=== PATIENT | male | born 1975 | race Hispanic/Latino ===

== ENCOUNTER 2018-03-22 17:54 | Emergency (ER) | payer SELFPAY ==
--- NOTE | 2018-03-22 18:49 | ER ---
Nurse's Notes [facility] Name: Severino De La Garza Age: 42 yrs Sex: Male : 1975 Arrival Date: 03/22/2018 Time: 18:00 Bed 19 Private MD: None, None Diagnosis: Cutaneous abscess of left upper limb Presentation: 03/22 18:05 Presenting complaint: Patient states: Abscess to left forearm for 6 days. Transition of care: patient was not received from another setting of care. Onset of symptoms was March 16, 2018. Risk Assessment: Do you want to hurt yourself or someone else? Patient reports no desire to harm self or others. Initial Sepsis Screen: Does the patient meet any 2 criteria? No. Patient's initial sepsis screen is negative. Care prior to arrival: None. 18:05 Method Of Arrival: Ambulatory 18:05 Acuity: SUGAR 4 aj 19:05 Initial Sepsis Screen: Does the patient have a suspected source of infection? Yes: aj1 Other: abscess. Triage Assessment: 18:06 General: Appears in no apparent distress. comfortable, Behavior is calm, cooperative, aj appropriate for age. Pain: Complains of pain in dorsal aspect of left forearm Pain currently is 6 out of 10 on a pain scale. Neuro: Level of Consciousness is awake, alert, obeys commands, Oriented to person, place, time, situation, Appropriate for age. Respiratory: Airway is patent Respiratory effort is even, unlabored, Respiratory pattern is regular, symmetrical. Derm: Skin is intact, is healthy with good turgor, Skin is pink, warm \T\ dry. normal, Abscess located on dorsal aspect of left forearm is nickel sized, is red, is raised, was lanced by patient prior to arrival. Historical: - Allergies: 18:06 No Known Allergies; aj - Home Meds: 18:06 None [Active]; aj - PMHx: 18:06 None; aj - PSHx: 18:06 Skin Graft; aj - Immunization history:: Last tetanus immunization: up to date. - Social history:: Smoking status: Patient uses tobacco products, denies chronic smoking, but will smoke occasionally. - Ebola Screening: : Patient negative for fever greater than or equal to 101.5 degrees Fahrenheit, and additional compatible Ebola Virus Disease symptoms Patient denies exposure to infectious person Patient denies travel to an Ebola-affected area in the 21 days before illness onset No symptoms or risks identified at this time. Screenin:02 Abuse screen: Denies threats or abuse. Denies injuries from another. Nutritional aj1 screening: No deficits noted. Tuberculosis screening: No symptoms or risk factors identified. 19:05 Fall Risk None identified. aj1 Assessment: 19:02 General: Appears in no apparent distress. uncomfortable, Behavior is calm, cooperative, aj1 appropriate for age. Pain: Complains of pain in dorsal aspect of left forearm Pain does not radiate. Pain currently is 8 out of 10 on a pain scale. Neuro: Level of Consciousness is awake, alert, obeys commands, Oriented to person, place, time, situation, Speech is normal, Facial symmetry appears normal. Cardiovascular: Patient's skin is warm and dry. Respiratory: Airway is patent Respiratory effort is even, unlabored, Respiratory pattern is regular, symmetrical. GI: No signs and/or symptoms were reported involving the gastrointestinal system. : No signs and/or symptoms were reported regarding the genitourinary system. EENT: No signs and/or symptoms were reported regarding the EENT system. Derm: Skin is pink, warm \T\ dry. normal, Abscess located on dorsal aspect of left forearm is nickel sized, has purulent drainage, is hot to touch, is red, is raised, was lanced by patient prior to arrival. Musculoskeletal: No signs and/or symptoms reported regarding the musculoskeletal system. Circulation, motion, and sensation intact. Vital Signs: 18:06 BP 137 / 88; Pulse 67; Resp 17; Temp 98.2; Pulse Ox 96% on R/A; Weight 56 kg; Height 5 aj ft. 6 in. (167.64 cm); Pain 6/10; 18:06 Body Mass Index 19.93 (56.00 kg, 167.64 cm) aj ED Course: 18:00 Patient arrived in ED. sb2 18:00 None, None is Private Physician. sb2 18:06 Triage completed. aj 18:06 Arm band placed on right wrist. Patient placed in an exam room. aj 18:17 Gavi Moy, BIA is Primary Nurse. aj1 18:18 Ry Curran MD is Attending Physician. gs 19:02 Patient has correct armband on for positive identification. aj1 19:02 No provider procedures requiring assistance completed. aj1 19:05 Patient did not have IV access during this emergency room visit. aj1 Administered Medications: No medications were administered Outcome: 18:48 Discharge ordered by . landy 19:06 Discharged to home ambulatory. aj1 19:06 Condition: good 19:06 Discharge instructions given to patient, Instructed on discharge instructions, follow up and referral plans. medication usage, Demonstrated understanding of instructions, follow-up care, medications, Prescriptions given X 1. 19:06 Patient left the ED. aj1 Signatures: Gavi Moy RN RN ajAna Mohan RN RN aj Starr, Gregory, MD MD gs Billeau, Sheri sb2
--- NOTE | 2018-03-22 18:49 | EDPHYS ---
Physician Documentation [facility] Name: Severino De La Garza Age: 42 yrs Sex: Male : 1975 Arrival Date: 03/22/2018 Time: 18:00 Bed 19 Private MD: None, None ED Physician Ry Curran HPI: 03/22 18:44 This 42 yrs old Male presents to ER via Ambulatory with complaints of Abscess. gs 18:44 The patient presents with an abscess of the dorsal aspect of left forearm. Description: gs The affected area is moderate sized, confluent, draining, erythematous. Onset: The symptoms/episode began/occurred gradually, 4 day(s) ago, and became worse and became persistent. Possible cause(s): unknown. Associated signs and symptoms: Pertinent positives: drainage, erythema, Pertinent negatives: fever. Severity of symptoms: At their worst the symptoms were moderate, in the emergency department the symptoms are unchanged. The patient has experienced similar episodes in the past, a few times. Historical: - Allergies: 18:06 No Known Allergies; aj - Home Meds: 18:06 None [Active]; aj - PMHx: 18:06 None; aj - PSHx: 18:06 Skin Graft; aj - Immunization history:: Last tetanus immunization: up to date. - Social history:: Smoking status: Patient uses tobacco products, denies chronic smoking, but will smoke occasionally. - Ebola Screening: : Patient negative for fever greater than or equal to 101.5 degrees Fahrenheit, and additional compatible Ebola Virus Disease symptoms Patient denies exposure to infectious person Patient denies travel to an Ebola-affected area in the 21 days before illness onset No symptoms or risks identified at this time. ROS: 18:44 All other systems are negative. gs Exam: 18:44 Cardiovascular: Regular rate and rhythm with a normal S1 and S2. No gallops, murmurs, gs or rubs. Normal PMI, no JVD. No pulse deficits. Respiratory: Lungs have equal breath sounds bilaterally, clear to auscultation and percussion. No rales, rhonchi or wheezes noted. No increased work of breathing, no retractions or nasal flaring. Abdomen/GI: Soft, non-tender, with normal bowel sounds. No distension or tympany. No guarding or rebound. No evidence of tenderness throughout. Back: No spinal tenderness. No costovertebral tenderness. Full range of motion. Skin: Warm, dry with normal turgor. Normal color with no rashes, no lesions, and no evidence of cellulitis. 18:44 Constitutional: The patient appears alert, awake. 18:44 Musculoskeletal/extremity: Extremities: noted in the dorsal aspect of left forearm: erythema, Circulation is intact in all extremities. 18:44 Skin: abscess, that is moderate sized, of the dorsal aspect of left forearm, with drainage, with induration, cellulitis, that is mild. Vital Signs: 18:06 BP 137 / 88; Pulse 67; Resp 17; Temp 98.2; Pulse Ox 96% on R/A; Weight 56 kg; Height 5 aj ft. 6 in. (167.64 cm); Pain 6/10; 18:06 Body Mass Index 19.93 (56.00 kg, 167.64 cm) aj MDM: 18:42 Patient medically screened. gs 18:44 Differential diagnosis: abscess, cellulitis. Data reviewed: vital signs, nurses notes. gs Response to treatment: There is no appreciated change of the patient's symptoms at this time, and as a result, I will discharge patient. Administered Medications: No medications were administered Disposition: 03/22/18 18:48 Discharged to Home. Impression: Cutaneous abscess of left upper limb. - Condition is Stable. - Discharge Instructions: Abscess. - Prescriptions for Clindamycin HCl 150 mg Oral Capsule - take 2 capsule by ORAL route every 6 hours for 7 days; 56 capsule. - Medication Reconciliation Form, Thank You Letter, Antibiotic Education, Prescription Opioid Use form. - Follow up: Private Physician; When: 2 - 3 days; Reason: Re-evaluation by your physician. Signatures: Gavi Moy RN RN aj1 Ana Oseguera RN RN aj Ry Curran MD MD gs Corrections: (The following items were deleted from the chart) 19:06 18:48 03/22/2018 18:48 Discharged to Home. Impression: Cutaneous abscess of left upper aj1 limb. Condition is Stable. Forms are Medication Reconciliation Form, Thank You Letter, Antibiotic Education, Prescription Opioid Use. Follow up: Private Physician; When: 2 - 3 days; Reason: Re-evaluation by your physician. gs
== END 2018-03-22 19:06 | disposition home or self-care (01) ==
LOC: ER 17:54
DX: L02.414 Cutaneous abscess of left upper limb (principal); Z72.0 Tobacco use
CPT/HCPCS: 99282

== ENCOUNTER 2021-11-18 19:27 | Emergency (ER) | payer SELFPAY ==
[2021-11-18] MEDS ORDERED: NA CHLORIDE 0.9% 500 ML ONE (22:07)
[2021-11-18] MEDS ORDERED: FAMOTIDINE 20 MG/2 ML VIAL IV ONE (22:07)
[2021-11-18] MEDS ORDERED: ONDANSETRON 4 MG/2 ML VIAL ONE (22:07)
[2021-11-18 23:39] LABS: Absolute Lymphocytes (CBC) 0.5 K/uL (0.7-4.9); Hematocrit 37.4 % (39.6-49.0); Lymphocytes % 7.3 % (15.3-44.8); MPV 9.3 fL (7.6-11.3); RBC Red Blood Cell Count 4.29 M/uL (4.33-5.43)
[2021-11-18 23:54] LABS: ALT/SGPT 46 U/L (12-78); AST/SGOT 35 U/L (15-37); Albumin 2.9 g/dL (3.4-5.0); Alkaline Phosphatase 94 U/L (45-117); BUN Blood Urea Nitrogen 19 mg/dL (7-18); Bicarbonate 25 mmol/L (21-32); Bilirubin Direct < 0.1 mg/dL (0-0.2); Bilirubin Total 0.2 mg/dL (0.2-1.0); Glucose Level 105 mg/dL (74-106); Lipase 64 U/L (73-393); Potassium 3.2 mmol/L (3.5-5.1); Protein, Total 6.2 g/dL (6.4-8.2); Sodium Level 140 mmol/L (136-145)
--- NOTE | 2021-11-19 01:46 | ER ---
Nurse's Notes [facility] Name: Severino Crawley Age: 46 yrs Sex: Male : 1975 Arrival Date: 11/18/2021 Time: 19:31 Bed 7 Private MD: Diagnosis: Noninfective gastroenteritis and colitis, unspecified Presentation: 11/18 20:20 Chief complaint: Spouse and/or significant other states: vomiting since this morning. lg3 cannot keep anything down. Coronavirus screen: Client denies travel out of the [place] in the last 14 days. At this time, the client does not indicate any symptoms associated with coronavirus-19. Ebola Screen: No symptoms or risks identified at this time. Initial Sepsis Screen: Does the patient meet any 2 criteria? No. Patient's initial sepsis screen is negative. Does the patient have a suspected source of infection? No. Patient's initial sepsis screen is negative. Risk Assessment: Do you want to hurt yourself or someone else? Patient reports no desire to harm self or others. Onset of symptoms was November 18, 2021. 20:20 Method Of Arrival: Ambulatory lg3 20:20 Acuity: SUGAR 3 bb Triage Assessment: 20:22 General: Appears in no apparent distress. comfortable, Behavior is calm, cooperative. lg3 Pain: Denies pain. Neuro: No deficits noted. Level of Consciousness is awake, alert, obeys commands, Oriented to person, place, time, situation. GI: Abdomen is round non-distended, Bowel sounds present X 4 quads. Abd is soft and non tender X 4 quads. Reports intolerance of fluids, intolerance of food, nausea, vomiting. Historical: - Allergies: 20:22 No Known Allergies; lg3 - Home Meds: 20:22 escitalopram oxalate 10 mg oral tab 1 tab once daily [Active]; lg3 - PSHx: 20:22 None; lg3 - Immunization history:: Adult Immunizations up to date, Client reports receiving the 1st dose of the Covid vaccine, pfizer. - Social history:: Smoking status: Patient denies any tobacco usage or history of. Patient/guardian denies using alcohol. Screenin:21 Abuse screen: Denies threats or abuse. Nutritional screening: No deficits noted. st1 Tuberculosis screening: No symptoms or risk factors identified. Fall Risk None identified. No fall in past 12 months (0 pts). No secondary diagnosis (0 pts). IV access (20 points). Ambulatory Aid- None/Bed Rest/Nurse Assist (0 pts). Gait- Normal/Bed Rest/Wheelchair (0 pts) Mental Status- Oriented to own ability (0 pts). Total Tucker Fall Scale indicates No Risk (0-24 pts). Vital Signs: 20:20 BP 136 / 83; Pulse 94; Resp 18 S; Temp 99.1(TE); Pulse Ox 96% on R/A; Weight 79.38 kg lg3 (R); Height 5 ft. 7 in. (170.18 cm) (R); Pain 0/10; 11/19 01:57 BP 102 / 61; Pulse 90; Resp 18; Pulse Ox 95% on R/A; st1 11/18 20:20 Body Mass Index 27.41 (79.38 kg, 170.18 cm) lg3 ED Course: 11/18 19:31 Patient arrived in ED. wm 20:22 Triage completed. lg3 20:22 Arm band placed on right wrist. lg3 20:33 Kael Yang PA is PHCP. cp 20:33 Rc Encinas MD is Attending Physician. cp 21:09 Basic Metabolic Panel Sent. sm5 21:09 CBC with Diff Sent. sm5 21:09 Hepatic Function Sent. sm5 21:09 Lipase Sent. sm5 21:21 Patient has correct armband on for positive identification. Bed in low position. Call st1 light in reach. Side rails up X 1. Pulse ox on. NIBP on. 21:21 Inserted saline lock: 20 gauge in left forearm, using aseptic technique. st1 22:15 PHCP role handed off by Kael Yang PA jr8 22:15 Dilshad Nguyen PA is PHCP. jr8 11/19 01:12 CT Abd/Pelvis - IV Contrast Only In Process Unspecified. EDMS 01:57 No provider procedures requiring assistance completed. IV discontinued, intact, st1 bleeding controlled, No redness/swelling at site. Pressure dressing applied. Administered Medications: 11/18 22:13 Drug: NS 0.9% 500 ml Route: IV; Rate: bolus; Site: left forearm; sm5 22:13 Drug: Zofran (Ondansetron) 4 mg Route: IVP; Site: left forearm; sm5 22:13 Drug: Pepcid (famotidine) 20 mg Route: IVP; Site: left forearm; 5 23:00 Drug: NS 0.9% 500 ml Route: IV; Rate: 125 ml/hr; Site: left antecubital; st1 Outcome: 11/19 01:46 Discharge ordered by . jr8 01:57 Discharged to home ambulatory, with family. st1 01:57 Condition: stable 01:57 Discharge instructions given to patient, family, Instructed on discharge instructions, follow up and referral plans. medication usage, Demonstrated understanding of instructions, follow-up care, medications. 01:58 Patient left the ED. st1 Signatures: Dispatcher [employer] EDMS Lorena Burgos RN RN Dilshad Soriano PA PA jr8 Page, Corey, PA PA cp Gibson, Lacie, RN RN lg3 Shruti Savage Sarah, RN RN 5 Kinsey Platt RN RN st1 Corrections: (The following items were deleted from the chart) 11/18 20:28 20:20 Acuity: SUGAR 4 lg3 bb
--- NOTE | 2021-11-19 01:46 | EDPHYS ---
Physician Documentation [facility] Name: Severino Crawley Age: 46 yrs Sex: Male : 1975 Arrival Date: 11/18/2021 Time: 19:31 Bed 7 Private MD: ED Physician Rc Encinas HPI: 11/18 20:43 This 46 yrs old Male presents to ER via Ambulatory with complaints of Vomiting.cp 20:43 The patient presents to the emergency department with nausea, that is mild, vomiting, cp that is intermittent, 5 times today. Onset: The symptoms/episode began/occurred today, after eating lunch. Possible causes: unknown. Associated signs and symptoms: Pertinent positives: abdominal pain, Pertinent negatives: diarrhea, fever, GI bleeding, chest pain. Historical: - Allergies: 20:22 No Known Allergies; lg3 - Home Meds: 20:22 escitalopram oxalate 10 mg oral tab 1 tab once daily [Active]; lg3 - PSHx: 20:22 None; lg3 - Immunization history:: Adult Immunizations up to date, Client reports receiving the 1st dose of the Covid vaccine, [employer]. - Social history:: Smoking status: Patient denies any tobacco usage or history of. Patient/guardian denies using alcohol. ROS: 20:44 Eyes: Negative for injury, pain, redness, and discharge. cp 20:44 Constitutional: Negative for body aches, chills, fever, poor PO intake. 20:44 ENT: Negative for ear pain, sore throat, difficulty swallowing, difficulty handling secretions. 20:44 Cardiovascular: Negative for chest pain, edema, palpitations. 20:44 Respiratory: Negative for cough, shortness of breath, wheezing. 20:44 Abdomen/GI: Positive for abdominal pain, nausea and vomiting, Negative for diarrhea, constipation, anorexia, hematemesis. 20:44 Neuro: Negative for altered mental status, dizziness, headache, syncope, weakness. 20:44 All other systems are negative. Exam: 20:45 Head/Face: Normocephalic, atraumatic. cp 20:45 Constitutional: The patient appears in no acute distress, alert, awake, non-diaphoretic, non-toxic, well developed, well nourished. 20:45 Eyes: Periorbital structures: appear normal, Conjunctiva: normal, no exudate, no injection, Sclera: no appreciated abnormality, Lids and lashes: appear normal, bilaterally. 20:45 ENT: External ear(s): are unremarkable, Nose: is normal, Mouth: Lips: moist, Oral mucosa: moist, Posterior pharynx: is normal, airway is patent. 20:45 Chest/axilla: Inspection: normal, Palpation: is normal, no crepitus, no tenderness. 20:45 Cardiovascular: Rate: normal, Rhythm: regular. 20:45 Respiratory: the patient does not display signs of respiratory distress, Respirations: normal, no use of accessory muscles, no retractions, labored breathing, is not present, Breath sounds: are clear throughout, no decreased breath sounds, no stridor, no wheezing. 20:45 Abdomen/GI: Inspection: abdomen appears normal, Bowel sounds: active, all quadrants, Palpation: soft, in all quadrants, mild abdominal tenderness, in the epigastric area, rebound tenderness, is not appreciated, voluntary guarding, is not appreciated, involuntary guarding, is not appreciated. 20:45 Back: pain, is absent, ROM is normal. 20:45 Neuro: Orientation: to person, place \T\ time. Mentation: is normal. Vital Signs: 20:20 BP 136 / 83; Pulse 94; Resp 18 S; Temp 99.1(TE); Pulse Ox 96% on R/A; Weight 79.38 kg lg3 (R); Height 5 ft. 7 in. (170.18 cm) (R); Pain 0/10; 11/19 01:57 BP 102 / 61; Pulse 90; Resp 18; Pulse Ox 95% on R/A; st1 11/18 20:20 Body Mass Index 27.41 (79.38 kg, 170.18 cm) lg3 MDM: 11/18 20:39 Patient medically screened. cp 21:00 Differential diagnosis: Nonspecific abd pain, gastritis, pancreatitis, gastroenteritis. cp 11/19 01:45 Data reviewed: vital signs, nurses notes, lab test result(s), radiologic studies, CT jr8 scan. Data interpreted: Pulse oximetry: on room air is 96 %. Interpretation: normal. Counseling: I had a detailed discussion with the patient and/or guardian regarding: the historical points, exam findings, and any diagnostic results supporting the discharge/admit diagnosis, lab results, radiology results, the need for outpatient follow up, a family practitioner, to return to the emergency department if symptoms worsen or persist or if there are any questions or concerns that arise at home. Response to treatment: the patient's symptoms have markedly improved after treatment. Special discussion: Based on the patient's Hx, exam, and Dx evaluation, there is no indication for emergent surgery or inpatient Tx. It is understood by the patient/guardian that if the Sx's persist or worsen they need to return immediately for re-evaluation. 11/18 20:48 Order name: Basic Metabolic Panel; Complete Time: 23:55 cp 11/18 20:48 Order name: CBC with Diff; Complete Time: 23:43 cp 11/18 20:48 Order name: Hepatic Function; Complete Time: 23:55 cp 11/18 20:48 Order name: Lipase; Complete Time: 23:55 cp 11/18 20:48 Order name: Magnesium; Complete Time: 23:55 cp 11/18 20:49 Order name: CT Abd/Pelvis - IV Contrast Only cp 11/18 20:48 Order name: IV Saline Lock; Complete Time: 22:01 cp 11/18 20:48 Order name: Labs collected and sent; Complete Time: 21:09 cp Administered Medications: 11/18 22:13 Drug: NS 0.9% 500 ml Route: IV; Rate: bolus; Site: left forearm; sm5 22:13 Drug: Zofran (Ondansetron) 4 mg Route: IVP; Site: left forearm; sm5 22:13 Drug: Pepcid (famotidine) 20 mg Route: IVP; Site: left forearm; sm5 23:00 Drug: NS 0.9% 500 ml Route: IV; Rate: 125 ml/hr; Site: left antecubital; st1 Disposition: 11/19 04:57 Co-signature as Attending Physician, Rc Encinas MD I agree with the assessment and kdr plan of care. Disposition Summary: 11/19/21 01:46 Discharge Ordered Location: Home jr Problem: new jr8 Symptoms: have improved jr8 Condition: Stable jr8 Diagnosis - Noninfective gastroenteritis and colitis, unspecified jr8 Followup: jr8 - With: Private Physician - When: 2 - 3 days - Reason: Recheck today's complaints, Continuance of care, Re-evaluation by your physician Discharge Instructions: - Discharge Summary Sheet jr8 - Viral Gastroenteritis, Adult jr8 Forms: - Medication Reconciliation Form jr8 - Thank You Letter jr8 - Antibiotic Education jr8 - Prescription Opioid Use jr8 Prescriptions: - promethazine 25 mg Oral Tablet - take 1 tablet by ORAL route every 6 hours As needed; 20 tablet; Refills: 0, jr8 Product Selection Permitted - dicyclomine 20 mg Oral Tablet - take 1 tablet by ORAL route 3 times per day As needed; 21 tablet; Refills: 0, jr8 Product Selection Permitted Signatures: Dispatcher [employer] EDCO Rc Encinas MD MD kdr Roszak, Josh, PA PA jr8 Kael Yang PA PA cp Gibson, Lacie, RN RN lg3 Claudine Casas RN RN sm5 Kinsey Platt RN RN st1
[2021-11-19 03:10] VITALS: TEMP 99.1
[2021-11-19 03:11] VITALS: BP 102/61; O2SAT 95
--- NOTE | 2021-11-19 13:38 | RAD REPORT ---
EXAM DESCRIPTION: CT Abdomen and Pelvis With Intravenous Contrast CLINICAL HISTORY: Epigastric pain TECHNIQUE: Axial computed tomography images of the abdomen and pelvis with intravenous contrast. S agittal and coronal reformatted images were created and reviewed. This CT exam was performed using one or more of the following dose reduction techniques: automated exposure control, adjustment of t he mA and/or kV according to patient size, and/or use of iterative reconstruction technique. COMPARISON: No relevant prior studies available. FINDINGS: Lung bases: Bibasilar subsegmental atelectasis/pleural parenchymal scar. Mediastinum: Small to moderate hiatal hernia. ABDOMEN: Liver: Unremarkable. No mass. Gallbladder and bile ducts: Unremarkable. No calcified stones. No ductal dilation. Pancreas: Unremarkable. No mass. No ductal dilation. Spleen: Unremarkable. No splenomegaly. Adrenals: Unremarkable. No mass. Kidneys and ureters: Unremarkable. No solid mass. No hydronephrosis. Stomach and bowel: Air-fluid levels within the distal small bowel and throughout the large bowel. N o appreciable mucosal thickening. PELVIS: Appendix: Normal caliber appendix. No findings to suggest acute appendicitis. Bladder: Unremarkable. No mass. Reproductive: Unremarkable as visualized. ABDOMEN and PELVIS: Intraperitoneal space: Unremarkable. No free air. No significant fluid collection. Bones/joints: Multilevel spondylosis. 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 No acute fracture. No dislocation. Soft tissues: Small fat-containing umbilical hernia. Vasculature: Unremarkable. No abdominal aortic aneurysm. Lymph nodes: Subcentimeter mesenteric lymph nodes. IMPRESSION: 1. Small to moderate hiatal hernia. 2. Nonspecific air-fluid levels present within the large bowel. This can be seen in the clinical se tting of diarrhea. 3. Other findings as above. Electronically signed by: Lakesha Banks MD 11/19/2021 1:35 AM MILL [employer] Due to temporary technical issues with the PACS/Fluency reporting system, reports are being signed by the in house radiologists without review as a courtesy to insure prompt reporting. The interpreting radiologist is fully responsible for the content of the report.
== END 2021-11-19 01:58 | disposition home or self-care (01) ==
LOC: ER 19:27
DX: K52.9 Noninfective gastroenteritis and colitis, unspecified (principal)
CPT/HCPCS: 36415; 74177; 80048; 80076; 83690; 83735; 85025; 96374; 96375; 99284; J2405; J7040; Q9967